=== PATIENT | female | born 1965 | race African-American/Black ===

== ENCOUNTER 2016-11-20 19:52 | Emergency (ER) | payer OTHER ==
[~2016-11-20] VITALS: Ht 152.4 cm; Wt 67.6 kg
[2016-11-20 20:04] VITALS: BP 143/101
== END 2016-11-20 23:50 | disposition left against medical advice (07) ==
LOC: ER 19:55
DX: M79.601 Pain in right arm (principal); Z53.21 Procedure and treatment not carried out due to patient leaving prior to being seen by health care provider